=== PATIENT | female | born 1975 | race Caucasian/White ===

== ENCOUNTER → 2016-08-13 | Outpatient (CLI) | payer BC ==
[~2016-08-13] MED LIST: ABILIFY 15MG TA15 MG PO; ABILIFY20 MG PO; ADDERALL20 MG PO; DESYREL 100MG100 MG PO; EPITOL; KLONOPIN 0.5MG0.5 MG PO; KLONOPIN 1MG1 MG PO; KLONOPIN2 MG; LAMICTAL 100MG100 MG PO; LATUDA40 MG; LITHIUM 30300 MG/CAP; LITHIUM CA150 MG/CAP; PROZAC40 MG PO; SEROQUEL XR150 MG PO; VIIBRYD20 MG PO; WELLBUTRIN XL300 M1 PO
== END ==
LOC: BHSO 09:07
DX: F41.1 Generalized anxiety disorder (principal)

== ENCOUNTER → 2016-09-21 | Outpatient (CLI) | payer BC | LOC: BHSO 15:24 | DX: F31.0 Bipolar disorder, current episode hypomanic (principal) ==

== ENCOUNTER → 2016-10-15 | Outpatient (CLI) | payer BC | LOC: BHSO 09:02 | DX: F33.2 Major depressive disorder, recurrent severe without psychotic features (principal) ==

== ENCOUNTER → 2016-12-03 | Outpatient (CLI) | payer BC | LOC: BHSO 15:28 | DX: F31.73 Bipolar disorder, in partial remission, most recent episode manic (principal) ==

== ENCOUNTER → 2017-01-17 | Outpatient (CLI) | payer BC | LOC: BHSO 15:42 | DX: F31.73 Bipolar disorder, in partial remission, most recent episode manic (principal) ==

== ENCOUNTER → 2017-03-04 | Outpatient (CLI) | payer BC | LOC: BHSO 15:18 | DX: F31.73 Bipolar disorder, in partial remission, most recent episode manic (principal) ==

== ENCOUNTER → 2017-05-20 | Outpatient (CLI) | payer BC | LOC: BHSO 15:11 | DX: F31.73 Bipolar disorder, in partial remission, most recent episode manic (principal) ==

== ENCOUNTER → 2017-08-14 | Outpatient (CLI) | payer BC | LOC: BHSO 15:28 | DX: F31.73 Bipolar disorder, in partial remission, most recent episode manic (principal) | CPT/HCPCS: G0463 ==

== ENCOUNTER → 2017-11-12 | Outpatient (CLI) | payer BC | LOC: BHSO 15:44 | DX: F31.81 Bipolar II disorder (principal) | CPT/HCPCS: G0463 ==

== ENCOUNTER 2018-11-18 15:04 | Emergency (ER) | payer BC ==
[~2018-11-18] VITALS: Ht 152.4 cm; Wt 100.0 kg
[2018-11-18 15:10] VITALS: BP 137/97; TEMP 97.8
[2018-11-18 15:50] LABS: BASO % 0.4 % (0.0-2.0); EOS # 0.1 (0.0-0.7); EOS % 1.7 % (0-4.0); GRAN # 3.2 (1.4-6.5); GRAN % 61.2 % (42.2-75.2); HEMATOCRIT 42.5 % (37.0-47.0); HEMOGLOBIN 14.3 g/dl (12.5-16.0); LYMPH # 1.2 (1.2-3.4); LYMPH % 23.6 % (20.0-51.0); MEAN CELL VOLUME 81 fl (80.0-100.0); MEAN CORPUSCULAR HEMOGLOBIN 27 pg (27.0-31.0); MEAN CORPUSCULAR HGB CONC 34 g/dl (33.0-37.0); MEAN PLATELET VOLUME 11.6 fl (7.4-10.4); MONO # 0.7 (0.1-0.6); MONO % 12.9 % (1.7-9.3); PLATELET COUNT 254 K/mm3 (130-400); RED BLOOD COUNT 5.28 M/mm3 (4.10-5.30); REDCELL DISTRIBUTION WIDTH-CV 14.6 % (11.5-14.5)
[2018-11-18] MEDS ORDERED: ZOFRAN ODT4 MG PO (17:00)
[2018-11-18 17:17] LABS: ALBUMIN 4.2 gm/dL (3.5-5.0); BILIRUBIN,TOTAL 0.6 mg/dL (0.0-1.0); C-REACTIVE PROTEIN 4.8 mg/dL (0.0-0.9); CALCIUM 9.3 mg/dL (8.4-10.2); CREATININE, serum 0.57 (0.52-1.25); POTASSIUM 3.1 mmol/L (3.4-5.0); TOTAL PROTEIN 8.2 gm/dL (6.4-8.2)
[2018-11-18 17:55] VITALS: PULSE 82
== END 2018-11-18 17:58 | disposition home or self-care (01) ==
LOC: COL.ER 15:04
PROVIDERS: Emergency Medicine
DX: R19.7 Diarrhea, unspecified (principal); E86.0 Dehydration; R11.2 Nausea with vomiting, unspecified; Z98.84 Bariatric surgery status
CPT/HCPCS: J2405; J2550; J7030

== ENCOUNTER → 2020-08-15 | Outpatient (CLI) | payer BC ==
[~2020-08-15] MED LIST changes: +ZOFRAN ODT4 MG PO
== END ==
LOC: COL.LAB 07:56 → COL.ER 07:56
DX: Z02.83 Encounter for blood-alcohol and blood-drug test (principal)

== ENCOUNTER 2022-11-28 08:30 | Inpatient (IN) | payer OTHER ==
[2022-11-28] VITALS (10 sets, daily range): BP systolic 110–143; BP diastolic 64–90; PULSE 98–120; TEMP 98–99
[~2022-11-28] VITALS: Ht 152.4 cm; Wt 118.2 kg
[~2022-11-28 08:30] MED LIST changes: +CEFTIN500 MG PO
[2022-11-28 09:07] LABS: BASO % 0.3 % (0.0-2.0); EOS % 0.1 % (0.0-4.0); GRAN # 8.5 K/mm3 (1.4-6.5); GRAN % 81.2 % (42.2-75.2); HEMOGLOBIN 11.6 g/dl (12.5-16.0); LYMPH % 9.3 % (20.0-51.0); MEAN CELL VOLUME 72 fl (80.0-100.0); MEAN CORPUSCULAR HEMOGLOBIN 23 pg (27-31); MEAN CORPUSCULAR HGB CONC 31 g/dl (33.0-37.0); MEAN PLATELET VOLUME 10.2 fl (7.4-10.4); MONO # 0.9 K/mm3 (0.1-0.6); MONO % 8.5 % (1.7-9.3); PLATELET COUNT 428 K/mm3 (130-400); RED BLOOD COUNT 5.13 M/mm3 (4.10-5.30); REDCELL DISTRIBUTION WIDTH-CV 20.5 % (11.5-14.5)
[2022-11-28 09:25] LABS: ALBUMIN 3.9 gm/dL (3.5-5.0); BILIRUBIN,TOTAL 0.3 mg/dL (0.2-1.2); CREATININE, serum 0.75 mg/dL (0.57-1.11); POTASSIUM 3.3 mmol/L (3.5-4.5)
[2022-11-28] MEDS ORDERED: SEROQUEL400 MG PO (13:09)
[2022-11-28] MEDS ORDERED: VRAYLAR6 MG PO (13:09)
[2022-11-28] MEDS ORDERED: LITHIUM 30300 MG/CAP PO (13:09)
[2022-11-28] MEDS ORDERED: WELLBUTRIN XL300 M1 PO (13:10)
[2022-11-28] MEDS ORDERED: LAMICTAL200 MG PO (13:10)
--- NOTE | 2022-11-28 19:00 | NUR ---
Patient arrived to room 343 from PACU. Post vitals initiated and WNL. PICC to right upper arm with LR@100mls/hr. Dressing to midline abdomen CDI-abdominal binder on. BINA drain with scant amount of reddish output noted. [place] cath with clear yellow urine. Rating pain 2/10 at this time. Patient states that the last dose of medication given before arriving really helped her pain. Denies nausea/shortness of breath. Oriented to room/policy. Denies questions questions/concerns. Verbalizes understanding. Call light in reach. Will monitor.
--- NOTE | 2022-11-28 19:40 | NUR ---
Patient called with c/o pain-rating pain 6/10 on pain scale to abdomen. States she would prefer to get whatever they gave here earlier. Reviewed chart and received morphine. Spoke with Dr Lau and Morphine ordered Q2H PRN pain. If pain not controlled okay to start [employer]ICAL [employer] dilaudid that is already ordered.
--- NOTE | 2022-11-29 02:12 | NUR ---
Patient awake in room during rounding. States "Im ready to go home." Denies pain/nausea/shortness of breath. VS remain stable. BINA drain with a small amount of red fluid. Dressing remain dry and intact. Discussed may not be able to DC today but would be re-evaluated when providers round. Verbalizes unerstanding. call light in reach. Will monitor.
--- NOTE | 2022-11-29 03:52 | NUR ---
Patient sitting up in bed watching TV states "im a night owl." Denies pain at this time. VS have remained stable. Thornton cath with clear yellow urine. SCDs bilat. Denies current needs. Call light in reach. Will monitor.
[2022-11-29 04:12] VITALS: BP 122/106; PULSE 109; TEMP 97.6
--- NOTE | 2022-11-29 04:35 | NUR ---
Patient called with c/o pain to abdomen-rating pain 8/10 on pain scale-described as sharp jabs. Morphine given per order. AM labs drawn. Patient had removed abdominal binder stating "I just couldnt take it anymore." Will try to reapply once morphine kicks in. Denies questions/concerns. Will monitor.
--- NOTE | 2022-11-29 04:56 | NUR ---
Current pain level 2/10. Patient watching TV and states "much much better." denies any needs. Call light in reach. Will monitor.
[2022-11-29 06:55] VITALS: BP 132/84; PULSE 112; TEMP 97.3
[2022-11-29 07:07] LABS: BASO # 0.1 K/mm3 (0.0-0.2); BASO % 0.5 % (0.0-2.0); GRAN # 9.9 K/mm3 (1.4-6.5); GRAN % 77.1 % (42.2-75.2); HEMOGLOBIN 11.1 g/dl (12.5-16.0); LYMPH # 1.3 K/mm3 (1.2-3.4); MEAN CELL VOLUME 72 fl (80.0-100.0); MEAN CORPUSCULAR HEMOGLOBIN 22 pg (27-31); MEAN CORPUSCULAR HGB CONC 31 g/dl (33.0-37.0); MEAN PLATELET VOLUME 11.1 fl (7.4-10.4); MONO # 1.5 K/mm3 (0.1-0.6); MONO % 11.4 % (1.7-9.3); PLATELET COUNT 441 K/mm3 (130-400); RED BLOOD COUNT 4.95 M/mm3 (4.10-5.30); REDCELL DISTRIBUTION WIDTH-CV 20.1 % (11.5-14.5)
[2022-11-29 07:08] LABS: HEMATOCRIT 35.5 % (37.0-47.0)
[2022-11-29 07:26] LABS: CALCIUM 8.3 mg/dL (8.4-10.2); CREATININE, serum 0.69 mg/dL (0.57-1.11); MAGNESIUM 1.5 mg/dL (1.6-2.6); POTASSIUM 4.3 mmol/L (3.5-4.5)
--- NOTE | 2022-11-29 07:54 | NUR ---
Primary nurse notified of pulse 113. Patient sitting up in lowered bed with call light in reach. Complains of pain 03/21 in abd nurse notified.
--- NOTE | 2022-11-29 09:02 | NUR ---
PATIENT ALERT AND ORIENTED X4. VSS. PATIENT HERE FOR SBO/EXPLORATORY LAP/LYSIS OF ADHESIONS/HERNIA REPAIR. PATIENT REPORTS PAIN 9/10, REQUESTS PAIN MEDICATION. PICC TO RIGHT UPPER ARM FLUSHES WELL WITH GOOD BLOOD RETURN. LR RUNNING IN PURPLE LUMEN WITH LR @100ML/HOUR. PATIENT TOLERATING SIPS/CHIPS. PATIENT ON 2L PER NC. RODRIGUEZ TO DD WITH YELLOW OUTPUT. PATIENT ENCOURAGED TO UTILIZE IS AND ALLOW A BED BATH TODAY. PATIENT RESTING IN BED WITH CALL LIGHT NEAR. STUDENT NURSE ADMINISTERED MEDS WITH THE EXCEPTION OF NARCOTICS.
[2022-11-29 11:39] VITALS: BP 154/95; PULSE 108; TEMP 98.6
--- NOTE | 2022-11-29 14:15 | NUR ---
Initial visit: Forest Examiner went by room on rounds. Pt was resting and content. Pt has no needs right now. Forest Examiner will follow up as needed.
[2022-11-29 15:44] VITALS: BP 155/99; PULSE 114; TEMP 98.6
[2022-11-29 19:19] VITALS: BP 144/91; PULSE 105; TEMP 97.5
--- NOTE | 2022-11-29 21:38 | NUR ---
Patient assessed at this time, see shift assessment, rates her pain at 9/10, [place] given, with PICC to right upper arm LR running at 100cc/hr, noted a little bit of shadowing to midline dressing, BINA drain site CDI, with abdominal binder on, patient also walked down the hallway with assistance, still on oxygen at 2LPM via nasal prong, encouraged to use the IS and explained the relevance of it, denies further needs, SCD's on, call light and personal items within reach, will continue to monitor.
[2022-11-29 23:47] VITALS: BP 144/87; PULSE 102; TEMP 97.5
[2022-11-30 04:00] VITALS: BP 150/89; PULSE 103; TEMP 97.6
--- NOTE | 2022-11-30 05:42 | NUR ---
INT at this time patient has been tolerating her clear liquid diet, denies nausea, dressing to BINA site noted that it's coming off but no drainage, patient was messing it up, changed dressing with gauze and tape.
[2022-11-30 06:26] LABS: MEAN CELL VOLUME 71 fl (80.0-100.0); MEAN CORPUSCULAR HEMOGLOBIN 23 pg (27-31); MEAN CORPUSCULAR HGB CONC 32 g/dl (33.0-37.0); MEAN PLATELET VOLUME 10.7 fl (7.4-10.4); PLATELET COUNT 399 K/mm3 (130-400); REDCELL DISTRIBUTION WIDTH-CV 19.5 % (11.5-14.5)
[2022-11-30 06:28] LABS: HEMATOCRIT 31.4 % (37.0-47.0)
[2022-11-30 06:42] LABS: CALCIUM 8.4 mg/dL (8.4-10.2); CREATININE, serum 0.54 mg/dL (0.57-1.11); POTASSIUM 3.6 mmol/L (3.5-4.5)
[2022-11-30 07:10] VITALS: BP 121/87; PULSE 106; TEMP 97.8
--- NOTE | 2022-11-30 07:20 | NUR ---
Pt resting in bed during shift change. Pt has strong body smell. Discussed getting a bed bath this morning. Discussed this with [facility] student Caridad. Pt O2 was 86% on room air. Encouraged her to use incentive spirometer and to take deep breaths. Placed pt on 1.5 L per NC. PT does have crackles upper lobes bilat.
--- NOTE | 2022-11-30 07:23 | NUR ---
Pt awake laying in lowered bed with call light in reach. On 1L of oxygen. states pain is 2/10.
[2022-11-30 07:26] LABS: ANISOCYTOSIS 2+
[2022-11-30 07:28] LABS: PLATELET ESTIMATE INCREASED (NORMAL)
[2022-11-30 08:34] LABS: BAND 12 % (0-10); BASOPHIL 1 % (0-2); LYMPHOCYTE 18 % (20.0-51.0); NEUTROPHILS 60 % (42.0-75.2)
--- NOTE | 2022-11-30 10:42 | NUR ---
Basket Braider met with Patient at bedside to conduct Care Managment Assessment and discuss discahrge planning. Patient lives in [place], [place] alone and is established with PCP Dr. Brothers. Patient reports no family contacts or support. Patient recieves perscriptions from [employer] and is covered by insurance: [employer]. PAtient denies the use of O2, DME prior to discharge. PAtient declines Advanced directives at this time. SW collaborated with treatment team to conduct rounding at bedside. Treatment team will continue to follow through treatment to assess discahrge needs.
[2022-11-30 11:14] VITALS: BP 132/86; PULSE 107; TEMP 98
--- NOTE | 2022-11-30 15:00 | NUR ---
Pt now passing gas, tolerating the low fiber diet. Report given to Olivier RN
--- NOTE | 2022-11-30 15:42 | NUR ---
Patient laying in bed, A&Ox4. VSS. .5L NC O2. No reported SOB. IV CDI, fluids infusing. Denies pain and discomfort. Call light within reach
[2022-11-30 15:53] VITALS: BP 133/90; PULSE 106; TEMP 98.3
[2022-11-30 20:05] VITALS: BP 140/83; PULSE 107; TEMP 98.6
--- NOTE | 2022-11-30 21:35 | NUR ---
Patient assessed at this time, has been up walking down the joseph, passed gas, rated her abdominal pain at 9/10, [place] given as ordered, INT at this time, still with PICC at right upper arm, denies further needs, call light and personal items within reach, will continue to monitor.
[2022-12-01 00:03] VITALS: BP 131/78; PULSE 106; TEMP 98.2
[2022-12-01 04:03] VITALS: BP 130/85; PULSE 110; TEMP 98.6
--- NOTE | 2022-12-01 04:41 | NUR ---
Patient up to the bathroom and voided, denies pain at this time, denies further need at this time, will continue to monitor.
[2022-12-01 06:57] LABS: MEAN CELL VOLUME 74 fl (80.0-100.0); MEAN CORPUSCULAR HGB CONC 30 g/dl (33.0-37.0); MEAN PLATELET VOLUME 10.7 fl (7.4-10.4); PLATELET COUNT 398 K/mm3 (130-400); RED BLOOD COUNT 3.92 M/mm3 (4.10-5.30); REDCELL DISTRIBUTION WIDTH-CV 19.6 % (11.5-14.5)
[2022-12-01 06:58] LABS: CALCIUM 8.4 mg/dL (8.4-10.2); CREATININE, serum 0.53 mg/dL (0.57-1.11); POTASSIUM 3.6 mmol/L (3.5-4.5)
[2022-12-01 07:13] LABS: HEMATOCRIT 28.9 % (37.0-47.0); HEMOGLOBIN 8.8 g/dl (12.5-16.0); MEAN CORPUSCULAR HEMOGLOBIN 22 pg (27-31)
[2022-12-01 07:32] VITALS: BP 102/65; BP 136/79; PULSE 104; PULSE 74; TEMP 97.5; TEMP 98.4
--- NOTE | 2022-12-01 08:26 | NUR ---
Patient resting in bed this am. Alert & oriented. Pain rating 9/10 in abdomen from cough. [place] per orders & tesslon pearles. Picc to RUE new dressing applied, prior dressing noted to be falling off, sterile procedure used. Abdomen soft, midline mao intact. She reports positive flatus, but no BMs yet. BINA drain to compression. She is ordering low fiber breakfast denies nausea. Will monitor
[2022-12-01 08:50] LABS: BAND 4 % (0-10); EOSINOPHIL 4 % (0-4); LYMPHOCYTE 17 % (20.0-51.0); NEUTROPHILS 62 % (42.0-75.2)
[2022-12-01 08:51] LABS: ANISOCYTOSIS 2+; HYPOCHROMIA 3+; MICROCYTOSIS 1+; MYELOCYTE 1 % (0-0); OVALOCYTES 1+; PLATELET ESTIMATE INCREASED (NORMAL)
[2022-12-01] MEDS ORDERED: NORCO 325 MG-51 TAB PO (09:35)
--- NOTE | 2022-12-01 12:00 | NUR ---
Patient ready for discharge home. and hospitalist rounded & orders obtained. Patient Picc line removed per protocol. Patient tolerated well. Patient given all discharge instructions. We discussed diet & activity restrictions. Incisions cares & signs & symptopms to call doctor or seek medication attention discussed. Patiet aware she needs to call Saturday for a follow up appt. Patient dressed & wheeled out with all belongings.
== END 2022-12-01 12:05 | disposition home or self-care (01) | DRG 336 ==
LOC: COL.ER 08:30 → SURG 12:32
PROVIDERS: Personal Emergency Response Attendant; Surgery; ADMIT Internal Medicine
PROC: 0WQF0ZZ Repair Abdominal Wall, Open Approach (ICD-10-PCS; 2022-11-28)
PROC: 02HV33Z Insertion of Infusion Device into Superior Vena Cava, Percutaneous Approach (ICD-10-PCS; 2022-11-28)
PROC: 0DN80ZZ Release Small Intestine, Open Approach (ICD-10-PCS; principal; 2022-11-28 14:00)
DX: K43.0 Incisional hernia with obstruction, without gangrene (principal); Z68.43 Body mass index [BMI] 50.0-59.9, adult; E66.01 Morbid (severe) obesity due to excess calories; E87.6 Hypokalemia; E83.42 Hypomagnesemia; F31.9 Bipolar disorder, unspecified; Z23 Encounter for immunization; Z98.84 Bariatric surgery status; Z87.01 Personal history of pneumonia (recurrent); D64.9 Anemia, unspecified
CPT/HCPCS: A4314; A9284; C1751; C1892; C9113; J0330; J0690; J1100; J1650; J2250; J2270; J2405; J2704; J2710; J2795; J3010; J3475; J3480; J7030; J7120; Q9967